=== PATIENT | female | born 1965 | race Two or more races ===

== ENCOUNTER 2024-08-23 09:10 | Outpatient (RCR) | payer OTHER, SELFPAY ==
--- NOTE | 2024-08-23 15:11 | PT.ODS1RPT ---
PT OP Progress/Discharge Note Date of Service: 08/23/24 Progress Note/DC Note Progress Note/Discharge Note: DC Note Patient Information Visit Reasons: left knee surgery Service Continue Service or Discharge: Discharge Discharge Date: 08/23/24 Status Subjective: Improved ROM with straightening the knee. She is doing HEP Objective: See F/S for therex MT: PPM into extension with overpressure x5' total, 10 sec holds PROM: Extension: -3 deg Flexion: 92 deg L knee strength is 4+/5 Assessment: Improved PROM into knee extension after MT to about -3 deg. She is able to ambulate with improved extension and heel strike with cues. Slow progress with knee flexion PROM to 92 deg limited by myofascial scar tissue adhesions. Good progress with gait pattern to meet goal of ambulating community distances with reciprocal pattern. She can squat with hand support to 50% depth x10 with min L knee pain. Plan: D/C with HEP Procedure Charges Therapeutic Exercise 30 minutes: Yes
== END 2024-09-17 23:59 | disposition home or self-care (01) ==
LOC: CPTX 09:10
PROVIDERS: PCP Orthopaedic Surgery; Referring Provider Orthopaedic Surgery; Visit Provider Orthopaedic Surgery
DX: M25.562 Pain in left knee (principal); Z96.652 Presence of left artificial knee joint
CPT/HCPCS: 97110

== ENCOUNTER 2024-11-19 08:06 | Emergency (ER) | payer BC, MEDICAID, SELFPAY ==
[2024-11-19 08:15] VITALS: BP 148/74; PULSE 82; RESP 16; TEMP 36.7; O2SAT 97; BMI 33.1
--- NOTE | 2024-11-19 08:27 | XR_ITS ---
Examination: PA lateral chest 2 views Technique: Upright PA lateral chest 2 views Exam date and time: November 19, 2024 0840 hrs. Comparison March 24, 2023 Indications: Onset chest pain today. Findings: Mild opacity at the right lung base Normal heart size No pulmonary edema Impression: Early pneumonia right base
[2024-11-19 10:25] LABS: Basophils # (Auto) 0.1 Thou/mm3 (0.0-0.2); Basophils % (Auto) 1 % (0-2.5); Eosinophils # (Auto) 0.2 Thou/mm3 (0.0-0.5); Eosinophils % (Auto) 2 % (0-10); Hematocrit 39.9 % (36.0-46.0); Hemoglobin 13.5 g/dL (12.0-16.0); Immature Granulocytes % (Auto) 1 % (0-0); Immature Granulocytes Auto 0.03 Thou/mm3 (0.00-0.00); Lymphocytes # (Auto) 2.2 Thou/mm3 (1.0-4.8); Lymphocytes % (Auto) 33 % (10-50); Mean Corpuscular HGB Conc 33.8 g/dl (31.0-37.0); Mean Corpuscular Hemoglobin 27.3 pg (25.0-35.0); Mean Corpuscular Volume 81 fL (80-100); Monocytes # (Auto) 0.4 Thou/mm3 (0.0-0.8); Monocytes % (Auto) 6 % (0-12); Neutrophils # (Auto) 3.7 Thou/mm3 (1.8-7.7); Neutrophils % (Auto) 57 % (37-80); Nucleated Red Blood Cell % 0 /100 WBC (0); Platelet Count 255 Thou/mm3 (140-440); RDW Standard Deviation 38.8 fL (36.4-46.3); Red Blood Count 4.94 Miln/mm3 (4.00-5.20); White Blood Count 6.5 Thou/mm3 (3.6-11.0)
[2024-11-19 10:45] LABS: Alanine Aminotransferase 17 U/L (10-49); Albumin, Serum 4.5 gm/dL (3.5-5.0); Albumin/Globulin Ratio 1.7 (1.2-2.2); Alkaline Phosphatase 130 U/L (46-116); Anion Gap 6 (7-16); Aspartate Amino Transferase 15 U/L (0-34); BUN/Creatinine Ratio 18 Ratio (12-20); Bilirubin,Total 0.6 mg/dL (0.3-1.2); Blood Urea Nitrogen 11 mg/dL (9-23); Calcium 9.8 mg/dL (8.3-10.6); Calcium (Corrected) 9.8 mg/dL (8.5-10.1); Chloride 105 mMol/L (98-107); Creatinine (Component) 0.6 mg/dL (0.6-1.3); Estimated Creatinine Clearance 113.4 mL/min (>60); Globulin 2.6 gm/dL (2.3-3.5); Glucose 155 mg/dL (74-106); Lipase 32 U/L (12-53); Osmolality,Calculated 281 (275-295); Potassium 4.7 mMol/L (3.4-5.1); Sodium 140 mMol/L (136-145); Total Protein 7.1 gm/dL (5.7-8.2); eGFR > 60 See Note
[2024-11-19 10:49] LABS: Partial Thromboplastin Time 28.6 Seconds (22.0-36.0); Prothrombin Time 10.9 Seconds (9.0-12.2)
--- NOTE | 2024-11-19 11:36 | PD.EDADULT ---
ED General RME/HPI General Chief complaint: Dental/Oral/Throat Stated complaint: BLOOD COMING OUT OF MY MOUTH Time Seen by Provider: 11/19/24 08:11 Arrival date/time: 11/19/24 08:06 59-year-old female presents emergency department today complaints of blood in her mouth patient does report similar episodes in the past. Patient reports no chest pain or shortness of breath abdominal pain Limitations: no limitations Related Data Home Medications ?Medication ?Instructions ?Recorded ?Confirmed No Known Home Medications 03/24/23 03/24/23 Allergies Allergy/AdvReac Type Severity Reaction Status Date / Time No Known Allergies Allergy Verified 11/19/24 08:10 Review of Systems Review of Systems Systems Reviewed: All systems reviewed, normal except as documented Constitutional Constitutional: Reports system reviewed and no additional complaints, except as documented, Denies fever(s) and Denies headache(s) Eyes Eyes: Reports system reviewed and no additional complaints, except as documented and Denies blurry vision ENT Ears, Nose, Mouth, and Throat: Reports system reviewed and no additional complaints, except as documented, Denies headache(s), Denies nasal congestion, Denies nasal discharge and Reports other ( Blood in mouth ) Cardiovascular Cardiovascular: Reports system reviewed and no additional complaints, except as documented, Denies chest pain and Denies dyspnea Respiratory Respiratory: Reports system reviewed and no additional complaints, except as documented, Denies chest congestion, Denies cough and Denies dyspnea Gastrointestinal Gastrointestinal: Reports system reviewed and no additional complaints, except as documented and Denies abdominal pain Integumentary/Breasts Skin/Breast: Reports system reviewed and no additional complaints, except as documented and Denies rash Neurologic Neurologic: Reports system reviewed and no additional complaints, except as documented, Reports as per HPI and Denies headache(s) Past Medical History Past Medical History NEUROLOGIC: Negative Neurological Disorders CARDIAC: Negative Cardiac Disorders or Congestive Heart Failure RESPIRATORY: Negative Chronic Obstructive Pulmonary Disease (COPD) GENITOURINARY: Negative Renal Disease REPRODUCTIVE: Positive Previous Pregnancies (X2) MUSCULOSKELETAL: Negative Musculoskeletal Disorders ENDOCRINE: Positive Diabetes Mellitus Type 2; Negative Diabetes Mellitus Type 1 HEMATOLOGIC: Negative Blood Disorders OTHER HISTORY: Positive Chicken Pox; Negative Falls, Anesthesia Reactions or Cancer Family History FAMILY HISTORY: Positive Family Cancer (BROTHER/ LIVER AND LUNG CA) Surgical History SURGICAL: Positive Eye Surgery (BILATERAL), Tubal Ligation and Section (X2) Social History SMOKING STATUS: Never smoker ED Exam General Limitations: Present no limitations General appearance: Present alert and in no apparent distress Head Head exam: Present atraumatic Eye Eye exam: Present normal appearance, PERRL and EOMI ENT ENT exam: Present normal exam, normal oropharynx and mucous membranes moist Neck Neck exam: Present normal inspection, full ROM and trachea midline Chest Chest inspection: Present normal inspection and symmetric chest wall rise Respiratory Respiratory exam: Present normal lung sounds bilaterally; Absent respiratory distress, wheezes, stridor, accessory muscle use or prolonged expiratory phase Cardiovascular Cardiovascular exam: Present regular rate, normal rhythm and normal heart sounds; Absent bradycardia, tachycardia or irregular rhythm Abdominal Exam Abdominal exam: Present soft and normal bowel sounds; Absent distention, tenderness, guarding, rebound or rigidity Extremities Exam Extremities exam: Present normal inspection and full ROM Back Exam Back exam: Present normal inspection and full ROM Neurological Exam Neurological exam: Present alert, oriented X3 and CN II-XII intact Psychiatric Psychiatric exam: Present normal affect and normal mood Skin Skin exam: Present warm, dry, intact and normal color Course Quality Measures none Orders Category Date Time Status XR chest 2V Stat Exams 11/19/24 08:27 Completed CBC Stat Lab 11/19/24 10:05 Completed Comprehensive Metabolic Panel Stat Lab 11/19/24 10:05 Completed Lipase Stat Lab 11/19/24 10:05 Completed Partial Thromboplastin Time Stat Lab 11/19/24 10:05 Completed Prothrombin Time with INR Stat Lab 11/19/24 10:05 Completed Vital Signs Vital signs: Vital Signs Temperature 98.0 F 11/19/24 08:15 Pulse Rate 82 11/19/24 08:15 Respiratory Rate 16 11/19/24 08:15 Blood Pressure 148/74 H 11/19/24 08:15 Pulse Oximetry (%) 97 11/19/24 08:15 Oxygen Delivery Method Room Air 11/19/24 08:15 O2 saturation 97% room air within the limits MDM Patient data External records reviewed:: [facility] previous records Clinical information provided by:: patient Social determinants that could affect healthcare access:: none Patient has the following chronic illnesses:: None How is presenting disease/condition affected by chronic disease/condition?: no chronic disease Evaluation data The following diagnostics were reviewed and interpreted by me:: lab results and radiology exam(s) Lab and/or radiology exams considered but not ordered:: Labs radiology obtained Interpretation Summary: Reviewed by me Medications Medications considered but not ordered:: Given Medication administrations:: Given Consultations Consultation(s) initiated? (list below): No Diagnosis Differential Diagnosis ED Complaint MDM: URI, epistaxis, upper GI bleed, lower GI bleed Most likely diagnosis given after review of the tests above:: Blood in mouth Admission Indicated Admission indicated?: not indicated Explain why admission is indicated or not indicated:: No criteria Admission Request Was there a request for admission?: No Disposition Plan Disposition Plan: Discharge Discharge Attestation Discharge Attestation: The patient and all family members were given an opportunity to ask questions and understood the discharge instructions. Discharge instructions specifically effects, indications for sooner follow up or return to the emergency department, and the expected course of current diagnosis. Patient condition: Stable Medical Decision Making MDM Narrative MDM Narrative: 59-year-old female presents emergency department today complaints of blood in her mouth patient does report similar episodes in the past. Patient reports no chest pain or shortness of breath abdominal pain On exam patient well-appearing patient does not appear ill or toxic patient's not appear in acute distress Lab work obtained no acute emergent findings noted x-ray obtained no acute emergent findings noted Hemoglobin 13.5 patient reports no rectal bleeding There was mention of possible pneumonia patient reports symptoms started last night patient reports no cough or fever I do not suspect patient has pneumonia clinically Patient discharged home in no distress to follow-up with primary care doctor in the next 24 to 48 hours and for any worsening symptoms to return to the ER immediately Differential Diagnosis Differential Diagnosis: URI, epistaxis, upper GI bleed, lower GI bleed Medical Records Medical records reviewed: Yes I reviewed the patient's medical records. Lab Data Lab results reviewed: Yes I reviewed the patient's lab results. 11/19/24 10:05 11/19/24 10:05 Labs: Lab Results 11/19/24 Range/Units 10:05 WBC 6.5 (3.6-11.0) Thou/mm3 RBC 4.94 (4.00-5.20) Miln/mm3 Hgb 13.5 (12.0-16.0) g/dL Hct 39.9 (36.0-46.0) % MCV 81 (80-100) fL MCH 27.3 (25.0-35.0) pg MCHC 33.8 (31.0-37.0) g/dl RDW Std Deviation 38.8 (36.4-46.3) fL Plt Count 255 (140-440) Thou/mm3 Neut % (Auto) 57 (37-80) % Lymph % (Auto) 33 (10-50) % Hernando % (Auto) 6 (0-12) % Eos % (Auto) 2 (0-10) % Baso % (Auto) 1 (0-2.5) % Neut # (Auto) 3.7 (1.8-7.7) Thou/mm3 Lymph # (Auto) 2.2 (1.0-4.8) Thou/mm3 Hernando # (Auto) 0.4 (0.0-0.8) Thou/mm3 Eos # (Auto) 0.2 (0.0-0.5) Thou/mm3 Baso # (Auto) 0.1 (0.0-0.2) Thou/mm3 Immature Gran # (Auto) 0.03 H (0.00-0.00) Thou/mm3 Absolute Nucleated RBC 0.00 (0.00-0.00) Thou/mm3 Immature Gran % 1 H (0-0) % Nucleated RBC % 0 (0) /100 WBC PT 10.9 (9.0-12.2) Seconds INR 1.0 (0.9-1.3) APTT 28.6 (22.0-36.0) Seconds Sodium 140 (136-145) mMol/L Potassium 4.7 (3.4-5.1) mMol/L Chloride 105 (98-107) mMol/L Carbon Dioxide 29.0 (20.0-31.0) mMol/L Anion Gap 6 L (7-16) BUN 11 (9-23) mg/dL Creatinine 0.6 (0.6-1.3) mg/dL Estim Creat Clear Calc 113.4 (>60) mL/min eGFR > 60 (60 - ) See Note BUN/Creatinine Ratio 18 (12-20) Ratio Glucose 155 H (74-106) mg/dL Calculated Osmolality 281 (275-295) Calcium 9.8 (8.3-10.6) mg/dL Corrected Calcium 9.8 (8.5-10.1) mg/dL Total Bilirubin 0.6 (0.3-1.2) mg/dL AST 15 (0-34) U/L ALT 17 (10-49) U/L Alkaline Phosphatase 130 H (46-116) U/L Total Protein 7.1 (5.7-8.2) gm/dL Albumin 4.5 (3.5-5.0) gm/dL Globulin 2.6 (2.3-3.5) gm/dL Albumin/Globulin Ratio 1.7 (1.2-2.2) Lipase 32 (12-53) U/L Radiology Data Radiology results reviewed: Yes I reviewed the patient's radiology results. Discharge Plan Plan Patient Disposition: HOME (Self Care) Disposition Comment: Stable Prescriptions/Referrals Prescriptions/Med Rec: No Action No Known Home Medications Referrals: TOYA GARRIDO [Primary Care Provider] - 11/21/24 Problem List Clinical Impression: Bleeding in mouth Patient/Caregiver Discharge Instructions Education Materials: Parts of the Mouth Additional Instructions: Please follow up with your primary care doctor in the next 24-48hrs for any worsening symptoms return here immediately You may need a referral for GI specialist for further evaluation of this bleeding for worsening symptoms please return immediately Print Language: Guatemalan Stand Alone Forms: Debora Award Info., Patient Portal Info Letter PA/REAL ESTATE DEVELOPER Supervising Physician PA/EVAN Supervising Physician: Dr Johns
[2024-11-19 12:07] VITALS: BP 160/84; PULSE 75; RESP 17; TEMP 36.4; O2SAT 100
== END 2024-11-19 12:22 | disposition home or self-care (01) ==
PROVIDERS: Nurse Practitioner Primary Care; Emergency Provider Emergency Medicine; PCP Nurse Practitioner Family
DX: K13.79 Other lesions of oral mucosa (principal)
CPT/HCPCS: 36415; 71046; 80053; 83690; 85025; 85610; 85730; 99283

== ENCOUNTER → 2024-11-29 | Outpatient (CLI) | payer BC, MEDICAID, SELFPAY ==
[2024-11-29 18:10] LABS: Alanine Aminotransferase 13 U/L (10-49); Albumin, Serum 4.2 gm/dL (3.5-5.0); Albumin/Globulin Ratio 1.9 (1.2-2.2); Alkaline Phosphatase 126 U/L (46-116); Anion Gap 6 (7-16); Aspartate Amino Transferase 14 U/L (0-34); BUN/Creatinine Ratio 22 Ratio (12-20); Bilirubin,Total 0.3 mg/dL (0.3-1.2); Blood Urea Nitrogen 13 mg/dL (9-23); Calcium 9.7 mg/dL (8.3-10.6); Calcium (Corrected) 9.7 mg/dL (8.5-10.1); Carbon Dioxide 28.4 mMol/L (20.0-31.0); Chloride 106 mMol/L (98-107); Creatinine (Component) 0.6 mg/dL (0.6-1.3); Globulin 2.2 gm/dL (2.3-3.5); Glucose 143 mg/dL (74-106); Osmolality,Calculated 281 (275-295); Potassium 4.2 mMol/L (3.4-5.1); Sodium 140 mMol/L (136-145); Total Protein 6.4 gm/dL (5.7-8.2); eGFR > 60 See Note
== END | disposition home or self-care (01) ==
LOC: COPL 16:35
DX: R59.1 Generalized enlarged lymph nodes (principal)
CPT/HCPCS: 36415; 80053

== ENCOUNTER → 2024-12-06 | Outpatient (CLI) | payer BC, SELFPAY ==
[2024-12-06 09:39] LABS: Quantiferon-TB* See Sep Rpt
[2024-12-06 10:41] LABS: Basophils # (Auto) 0.1 Thou/mm3 (0.0-0.2); Basophils % (Auto) 1 % (0-2.5); Eosinophils # (Auto) 0.2 Thou/mm3 (0.0-0.5); Eosinophils % (Auto) 2 % (0-10); Hemoglobin 12.9 g/dL (12.0-16.0); Immature Granulocytes % (Auto) 1 % (0-0); Immature Granulocytes Auto 0.04 Thou/mm3 (0.00-0.00); Lymphocytes # (Auto) 2.3 Thou/mm3 (1.0-4.8); Lymphocytes % (Auto) 27 % (10-50); Mean Corpuscular HGB Conc 33.1 g/dl (31.0-37.0); Mean Corpuscular Volume 82 fL (80-100); Monocytes # (Auto) 0.4 Thou/mm3 (0.0-0.8); Monocytes % (Auto) 5 % (0-12); Neutrophils # (Auto) 5.5 Thou/mm3 (1.8-7.7); Neutrophils % (Auto) 65 % (37-80); Nucleated Red Blood Cell % 0 /100 WBC (0); Platelet Count 299 Thou/mm3 (140-440); Red Blood Count 4.78 Miln/mm3 (4.00-5.20); White Blood Count 8.5 Thou/mm3 (3.6-11.0)
[2024-12-06 13:56] LABS: Cocci Serology, IgM Negative (Negative)
[2024-12-07 12:58] LABS: Cocci Serology, IgG Negative (Negative)
[2024-12-12 06:56] LABS: Helicobacter pylori Ag, Stool* NOT DETECTED (NOT DETECTED)
== END | disposition home or self-care (01) ==
LOC: COPL 09:18
PROVIDERS: PCP Nurse Practitioner Family; Referring Provider Nurse Practitioner Family; Visit Provider Nurse Practitioner Family
DX: Z00.00 Encounter for general adult medical examination without abnormal findings (principal); B38.89 Other forms of coccidioidomycosis; R04.2 Hemoptysis; Z11.1 Encounter for screening for respiratory tuberculosis; R10.9 Unspecified abdominal pain; Z13.89 Encounter for screening for other disorder
CPT/HCPCS: 36415; 85025; 86331; 86480; 86635; 87338

== ENCOUNTER 2025-01-16 17:00 | Outpatient (RCR) | payer MEDICAID, SELFPAY ==
--- NOTE | 2025-01-05 15:46 | PT.OIERPT ---
PT OP Initial Eval Patient Information Outpatient Physical Therapy Treatment Date: 01/05/25 Visit Reasons: neck pain Medical Diagnosis: M54.2 Treatment Dx #1: neck pain Start of Care: 01/05/25 Date of Onset: 2 yrs ago Smoking Status Smoking Status: Never smoker Initial Assessment Subjective: Pt is 59 [address] [place] speaking female who reports neck pain x2 yrs and points to the middle of the neck up to the suboccipital region. She also reports a protrusion which is over the L SCM mm. Increased pain with moving the head and writing and weighing objects at work. PMH: DM Imaging: CT of C/S in EMR Bilateral carotid triangle lymph nodes, the largest on the right side 11 mm, the largest on the left side 15 mm Pt goal: less pain and pressure/tension of the neck Objective: C/S AROM: ? Ext 60% with pain at end-range ? Flexion full with slight onset of ssx ? L rotation: full R rotation: full ? B SB: 25 deg ? TTP: moderate of lower C/S paraspinals around C4-7 and UT?s ? B shoulder AROM: full FF ? Ramirez's reflex: negative ? Assessment: Pt has edema of L side of SCM muscle consistent with CT scan. She has good cervical ROM with pain of suboccipitals. Pt requires skilled therapy to meet goals and has fair rehab potential. She may benefit from further diagnostic imaging of C/S. 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 Ind with HEP ? 2. Decreased TTP of lower C/S from mod to min ? 3. Pt will turn head L to R x5 with <=4/10 pain Treatment Plan ? 1. Manual therapy ? 2. Therex ? 3. Modalities as indicated, mechanical traction, estim, moist heat, ice Frequency and Duration: 1-2x a week for 4 visits Certification Dates: 01/05/25 to 04/07/25 Procedure Charges OP PT Eval Mod Complex 30 minutes: Yes
--- NOTE | 2025-01-16 18:06 | PT.ODAYNRPT ---
PT Outpatient Daily Note OP Daily Note Outpatient Physical Therapy Treatment Date: 01/16/25 Visit Reasons: neck pain Subjective: Same as time of evaluation Objective: See F/S for therex MHP x5' C/S MT: STM C/S x7' C/S L paraspinals Assessment: Improved cervical retraction demo today Plan: Continue per POC Length of Time (minutes) of Treatment: 30 Minutes Procedure Charges Therapeutic Exercise 30 minutes: Yes
== END 2025-01-16 23:59 | disposition home or self-care (01) ==
LOC: CPTX 17:00
DX: M54.2 Cervicalgia (principal); R60.9 Edema, unspecified; E11.9 Type 2 diabetes mellitus without complications
CPT/HCPCS: 97110; 97162

== ENCOUNTER → 2025-02-13 | Outpatient (CLI) | payer BC, MEDICAID, SELFPAY ==
[2025-02-13 07:05] LABS: Quantiferon-TB* See Sep Rpt
[2025-02-13 09:18] LABS: Glucose Estimated Average 171 mg/dL (80-131); Hemoglobin A1C 7.6 % Hgb (4.8-6.0)
[2025-02-13 09:19] LABS: Cardiac Risk Estimate 5.3 RATIO (3.7-5.6); Cholesterol 179 mg/dL (132-200); HDL Cholesterol 34 mg/dL (40-60); LDL Cholesterol,Calculated 83 mg/dL (0-130); Triglycerides 311 mg/dL (30-150)
== END | disposition home or self-care (01) ==
LOC: COPL 06:46
PROVIDERS: PCP Nurse Practitioner Family; Referring Provider Nurse Practitioner Family; Visit Provider Nurse Practitioner Family
DX: Z11.1 Encounter for screening for respiratory tuberculosis (principal); E11.9 Type 2 diabetes mellitus without complications; E78.5 Hyperlipidemia, unspecified
CPT/HCPCS: 36415; 80061; 83036; 86480

== ENCOUNTER → 2025-04-24 | Outpatient (CLI) | payer BC, MEDICAID, SELFPAY ==
--- NOTE | 2025-04-24 07:00 | XR_ITS ---
Examination: MRI cervical spine without intravenous contrast Date and time of exam: April 24, 2025 0751 hours INDICATIONS: Neck pain 2 years Technique: Multiple axial and sagittal sections of the cervical spine to been obtained. T2 weighted sagittal sections, TR 3, 270, TE 117 T1-weighted sagittal sections, TR 500, TE 11 T1-weighted axial sections, TR 607, TE 12, axial sections TR 18, TE 27 and T2 weighted transverse sections, TR 3920, TE 122. Findings: Satisfactory alignment cervical vertebral bodies. No cervical fracture. Intact odontoid. Diffuse cervical dissociation. No localized enlargement cervical cord. C2-C3 no disc protrusion C3-C4 moderate left neural foraminal stenosis C4-C5 no disc protrusion C5-C6 2 mm central cervical disc bulge C6-C7 no disc protrusion C7-T1 no disc protrusion IMPRESSION: C3-C4 moderate left neural foraminal stenosis
== END | disposition home or self-care (01) ==
PROVIDERS: PCP Physician Assistant; Referring Provider Physician Assistant; Visit Provider Physician Assistant
DX: M48.02 Spinal stenosis, cervical region (principal)
CPT/HCPCS: 72141

== ENCOUNTER → 2025-08-21 | Outpatient (CLI) | payer BC, SELFPAY ==
[2025-08-21 07:34] LABS: Quantiferon-TB* See Sep Rpt
[2025-08-21 08:42] LABS: Alanine Aminotransferase 11 U/L (10-49); Albumin, Serum 4.5 gm/dL (3.5-5.0); Albumin/Globulin Ratio 2.4 (1.2-2.2); Alkaline Phosphatase 106 U/L (46-116); Anion Gap 9 (7-16); Aspartate Amino Transferase 11 U/L (0-34); BUN/Creatinine Ratio 15 Ratio (12-20); Bilirubin,Total 0.4 mg/dL (0.3-1.2); Blood Urea Nitrogen 9 mg/dL (9-23); Calcium 9.4 mg/dL (8.3-10.6); Calcium (Corrected) 9.4 mg/dL (8.5-10.1); Carbon Dioxide 26.2 mMol/L (20.0-31.0); Chloride 106 mMol/L (98-107); Creatinine (Component) 0.6 mg/dL (0.6-1.3); Globulin 1.9 gm/dL (2.3-3.5); Glucose 197 mg/dL (74-106); Osmolality,Calculated 284 (275-295); Potassium 4.6 mMol/L (3.4-5.1); Sodium 141 mMol/L (136-145); Total Protein 6.4 gm/dL (5.7-8.2); eGFR > 60 See Note
[2025-08-21 08:49] LABS: Glucose Estimated Average 177 mg/dL (80-131); Hemoglobin A1C 7.8 % Hgb (4.8-6.0)
== END | disposition home or self-care (01) ==
PROVIDERS: PCP Nurse Practitioner Family; Referring Provider Nurse Practitioner Family; Visit Provider Nurse Practitioner Family
DX: E11.40 Type 2 diabetes mellitus with diabetic neuropathy, unspecified (principal); A15.9 Respiratory tuberculosis unspecified
CPT/HCPCS: 36415; 80053; 83036; 86480